=== PATIENT | female | born 1945 | race Caucasian/White ===

== ENCOUNTER → 2021-07-17 | Outpatient (CLI) | payer OTHER ==
[~2021-07-17] VITALS: Ht 149.9 cm; Wt 49.9 kg
[~2021-07-17] MED LIST: OMEPRAZOLE 20 M20 M1 PO; TERIPARATIDE SUBQ
--- NOTE | 2021-07-19 14:07 | PATH ---
[facility] [address] [address] PATHOLOGY RPT PROCEDURE Name: TRISHA FIELDS RODRIGUEZ Room #: REG JORGE Gross.#: [id number] Admission: 07/17/21 Date of : 41 Discharge: Report #: [id number] Path Case #: [id number] [facility] Accession Number: [id number] . 01 Material submitted: . PART A: esophagus - DISTAL ESOPHAGUS; R/O ARIZMENDI'S. Modifiers: distal PART B: esophagus - DISTAL ESOPHAGUS R/O H. PYLORI. Modifiers: distal . 01 Clinical history: . EGD HX OF ULCER . 02 Diagnosis: A. Distal esophagus, rule out Arizmendi's, biopsy: - Squamous and glandular foveolar-type mucosa with features of mild reflux esophagitis. - Glandular mucosa with mild acute and chronic inflammation, negative for intestinal metaplasia/goblet cell metaplasia. - Negative for dysplasia or malignancy. . B. Distal esophagus, rule out H. pylori, biopsy: - Glandular cardiac/body type mucosa with chronic inactive inflammation. - Immunohistochemical stain for H. pylori-like organism is negative. (ANK/db; 07/19/2021) [facility] 07/19/2021 1031 Local . 02 Electronically signed: . Sylvia Carlos MD, Pathologist NPI- [id number] . 01 Gross description: . A. Received in formalin labeled "Trisha Fields, distal esophagus rule out Arizmendi's" are 2 rios-brown soft tissue fragments measuring in aggregate 0.5 x 0.3 x 0.1 cm. The specimen is submitted entirely in A1. . B. Received in formalin labeled "Trisha Fields, distal rule out H. pylori" and labeled on the requisition as "distal esophagus rule out H. pylori" are multiple rios-brown soft tissue fragments measuring in aggregate 0.7 x 0.5 x 0.1 cm. The specimen is submitted entirely in B1. ([facility]; 07/18/2021) [facility] 07/18/2021 1013 Local . 02 Pathologist provided ICD-10: K20.90, K29.50 . 02 CPT . 289069, 337469, [id number] [address] [address] PATHOLOGY RPT PROCEDURE Name: TRISHA FIELDS Room #: REG CL Aashish#: [id number] Admission: 07/17/21 Date of : 41 Discharge: Report #: [id number] Path Case #: [id number] Specimen Comment: A courtesy copy of this report has been sent to [phone], [phone] Specimen Comment: [id number] Specimen Comment: Report sent to / DR SLOAN Performed at: [address], [place], [place] [id number] MD Andres Perez MD Phone: [phone] Performed at: [address] [id number] MD Kari Helton MD Phone: [phone]
--- NOTE | 2021-07-26 10:40 | P ---
[facility] [place] [address] [address] PROCEDURE REPORT Name: VIKI GOLD Room #: REG JORGE Zendejas#: [id number] Admission: 07/17/21 Attend Phys: Orlin Norman Discharge: Date of : 41 Report #: [id number] THIS REPORT FOR: cc: Martha Graham MD, Jessica D. MD McElhinney, Christian C. MD ~ cc: Dr. Martha Graham DATE OF SERVICE: 07/17/2021 PROCEDURE PERFORMED: Upper endoscopy with biopsies. HISTORY OF PRESENT ILLNESS: The patient is a 76-year-old female with a history of gastroesophageal reflux disease, taking omeprazole on a daily basis, in general was controlling her symptoms fairly well, but this summer began having increasing heartburn, was taking Gaviscon and Tums on a p.r.n. basis, which was helpful. She denies any dysphagia or nausea or vomiting. Symptoms have now improved. However, at that time, she did have a CT scan of the abdomen, which did show a mild thickening in the distal esophagus. Plan is for upper endoscopy. 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 Last biopsies years ago were negative for Quiles's. DESCRIPTION OF PROCEDURE: The risks and benefits of the procedure were explained to the patient, those risks including but not limited to bleeding, perforation and the risk of sedation. She understood these risks and gave informed consent. Sedation was given using propofol per anesthesia. Next, using a standard Olympus upper endoscope, the scope was placed in the patient's mouth and advanced under direct vision through the esophagus, stomach and into the second portion of the duodenum. The larynx was normal in appearance. The upper and mid esophagus were normal. In the distal esophagus, a possible short segment of Quiles's was noted. Biopsies were obtained. There was no evidence of esophagitis or inflammation. There was a mild gastritis noted in the upper body. Biopsies were obtained. No evidence of ulcerations or erosions. The gastric antrum was normal. The pylorus was normal and patent. The duodenal bulb, first and second portion were all normal. The scope was then withdrawn and the procedure terminated. The patient tolerated the procedure well. IMPRESSION: 1. Possible short segment Quiles's. 2. Mild gastritis. 3. Otherwise, normal upper endoscopy. RECOMMENDATIONS: 1. Await biopsy results. 2. Continue daily PPI therapy. [address] [address] PROCEDURE REPORT Name: VIKI GOLD RODRIGUEZ Room #: REG CL Aashish#: [id number] Admission: 07/17/21 Attend Phys: Orlin Norman Discharge: Date of : 41 Report #: [id number] Thank you for allowing me to participate in her care. <ELECTRONICALLY SIGNED> By: Orlin Tsai MD 07/26/21 1040 1100 09 Orlin Tsai MD /mary
== END | disposition home or self-care (01) ==
LOC: GI 10:30
PROVIDERS: ATTEND Specialist
DX: K29.50 Unspecified chronic gastritis without bleeding (principal); K21.00 Gastro-esophageal reflux disease with esophagitis, without bleeding; E78.5 Hyperlipidemia, unspecified; M81.0 Age-related osteoporosis without current pathological fracture; Z98.890 Other specified postprocedural states; Z79.899 Other long term (current) drug therapy; Z20.822 Contact with and (suspected) exposure to COVID-19; Z87.19 Personal history of other diseases of the digestive system
CPT/HCPCS: 62110; 62900